=== PATIENT | male | born 1960 | race Caucasian/White ===

== ENCOUNTER → 2022-09-01 09:44 | Outpatient (CLI) | payer OTHER, SELFPAY ==
[2022-09-01 12:19] LABS: Add Manual Diff / Slide Review NO; Basophils Absolute Auto 0 /uL (0-100); Basophils Percent Auto 0.6 % (0-2); Eosinophils Absolute Auto 100 /uL (0-450); Eosinophils Percent Auto 1.9 % (2-4); Hematocrit 39.3 % (41-53); Hemoglobin 13.6 g/dL (13.5-17.5); Lymphocytes Absolute Auto 1600 /uL (1100-4500); Lymphocytes Percent Auto 36.1 % (25-40); Mean Corpuscular HGB Conc 34.6 % (30-36); Mean Corpuscular Hemoglobin 32.5 PG (26-34); Mean Corpuscular Volume 93.7 fL (80-100); Monocytes Absolute Auto 300 /uL (0-900); Monocytes Percent Auto 7.4 % (3-14); Neutrophils Absolute Auto 2400 /uL (1500-7000); Platelet Count 218 X10^3/uL (150-400); Red Blood Cell Count 4.19 X10^6/uL (4.5-5.9); White Blood Cell Count 4.5 X10^3/uL (4.5-11.0)
[2022-09-01 12:27] LABS: Hemoglobin A1C% w Est Avg Glu 5.2 % (4.0-6.0)
[2022-09-01 12:37] LABS: Appearance Urine UA CLEAR; Bilirubin Urine UA NEGATIVE (NEGATIVE); Color Urine UA YELLOW; Glucose Urine UA NEGATIVE (Negative); Ketones Urine UA NEGATIVE (NEGATIVE); Leukocyte Esterase Urine UA NEGATIVE (NEGATIVE); Nitrite Urine UA NEGATIVE (Negative); Occult Blood Urine UA TRACE-LYSED (Negative); Protein Urine UA NEGATIVE (Negative); Specific Gravity Urine UA <=1.005 (1.000-1.035); Urobilinogen Urine UA 0.2 E.U./dL (0.2)
[2022-09-01 13:06] LABS: Bacteria Urine None Seen; Culture Indicated Urine Cult Not Indicated; RBC Urine None Seen (0-5/HPF); Squamous Epithelial Cell Urine None Seen (0-5/HPF); WBC Urine None Seen (0-5/HPF)
[2022-09-01 13:56] LABS: BUN Creatinine Ratio 13.5 (6-22); Blood Urea Nitrogen 12 mg/dL (9-20); Calcium 9.1 mg/dL (8.4-10.2); Carbon Dioxide 25 mmol/L (22-32); Chloride 98 mmol/L (98-107); Estimated Glomerular Filt Rate > 60 mL/min (>60); Glucose 84 mg/dL (70-100); HEMOLYSIS < 15 (0-50); Potassium 4.3 mmol/L (3.4-5.1); Sodium 133 mmol/L (137-145)
== END ==
PROVIDERS: PCP Family Medicine; Referring Provider Orthopaedic Surgery; Visit Provider Orthopaedic Surgery
DX: Z01.818 Encounter for other preprocedural examination (principal); Z01.812 Encounter for preprocedural laboratory examination; R73.9 Hyperglycemia, unspecified; N39.0 Urinary tract infection, site not specified
CPT/HCPCS: 36415; 80048; 81001; 83036; 85025; 93005; 93010

== ENCOUNTER → 2022-10-04 10:00 | Outpatient (CLI) | payer OTHER, SELFPAY ==
[2022-10-04 10:35] LABS: COVID19 -Nasal RAPID Negative (Negative)
== END ==
PROVIDERS: PCP Family Medicine; Referring Provider Orthopaedic Surgery; Visit Provider Orthopaedic Surgery
DX: Z20.822 Contact with and (suspected) exposure to COVID-19 (principal)
CPT/HCPCS: 87635; C9803

== ENCOUNTER 2022-10-06 05:48 | Day surgery (SDC) | payer OTHER, SELFPAY ==
[2022-09-27 12:49] VITALS: BMI 26.3
[2022-10-06] VITALS (14 sets, daily range): BP systolic 117–165; BP diastolic 79–99; PULSE 66–93; RESP 12–18; TEMP 36.3–37.1; O2SAT 94–100; BMI 26.3; BMI 27.4
--- NOTE | 2022-10-06 06:43 | DI.RAD.S_ITS ---
PROCEDURE: XR HIP W PEL IF DONE RT 2V INDICATIONS: right MARY ALICE TECHNIQUE: 4 intraoperative fluoroscopic images obtained. COMPARISON: None. FINDINGS: Four intraoperative fluoroscopic images obtained from right hip arthroplasty. IMPRESSION: Intraprocedural fluoroscopy was provided for guidance and anatomical localization. Please see the procedure report for further details. Dictated by: Joel Moody M.D. on 10/07/2022 at 14:45 Approved by: Joel Moody M.D. on 10/07/2022 at 14:46
[2022-10-06] MEDS: VANCOMYCIN 1,000 MG/200 ML PIGGYBACK 200 MG IV (07:12)
[2022-10-06] MEDS: ACETAMINOPHEN 325 MG TABLET 975 MG PO (07:12)
[2022-10-06] MEDS: CELECOXIB 200 MG CAPSULE PO (07:12)
[2022-10-06] MEDS: LACTATED RINGERS 1,000 ML 100 ML IV ×2 (07:28→10:56)
--- NOTE | 2022-10-06 07:43 | P.OP_ITS ---
Operative Date/Time/Diagnoses Date of procedure: 10/06/22 Time of procedure: 08:00 Pre-op diagnosis: right hip OA Post-op diagnosis: same Procedure & Clinicians Procedure: right total hip arthroplasty anterior approach Same procedure as scheduled: Yes Indications: The patient has had progressively worsening right hip pain with radiographic c hanges consistent with arthritis. Non-operative management has failed and the patient has requested total hip replacement. The risks, benefits and alternatives to surgery were discussed with the patient prior to proceeding. Risks discussed included, but were not limited to, failure to relieve pain, leg length discrepancy, dislocation, stiffness, infection, nerve damage, deep venous thrombosis, pulmonary embolism, stroke, coma, heart attack, permanent paralysis and , as well as the potential need for eventual revision of the prosthetic. Surgeon: Melanie Elizalde Assistant Professor Of Radiology: Juventino Vela Anesthesia Type: General Operative Notes Findings: Severe right hip osteoarthritis, adequate bone, adequate stability Closure Type: primary Specimen(s): none sent Prosthetic devices, grafts, tissues, transplants, or devices: Elizalde and nephew size 7 anthology a, 52 mm R3 cup, neutral poly liner, 36 x -3 Oxinium head, one 6.5 mm screw Estimated Blood Loss (mL): 250 Blood products transfused: none Procedure in detail: The patient was brought to the operating room. Patient was carefully positioned in the supine position. Time-out was performed and antibiotics were given. Anesthesia was induced. He was positioned in the on the table in order to allow hyperextension of the hip. The right lower extremity was prepped and draped in a standard sterile fashion. An anterior right hip incision was made 1 fingerbreadth lateral to the anterior superior iliac spine and extended distally towards the greater trochanter. Dissection was carried out through skin and subcutaneous tissues. Superficial hemostasis was achieved. The fascia over the tensor fascia danitza was defined and incised with a knife. Two Allis clamps were used to grasp the fascia. Tensor fascia danitza was retracted laterally. A gelpi retractor was placed. Dissection was carried out down along the neck. The circumflex vessels were carefully identified and cauterized with the Aqua Mantis. There was good visualization of the femoral neck. A Cobra was placed superior to the neck and the gluteus fibers were carefully stripped from that superior aspect of the capsule. A 2nd retractor was placed along the inferior aspect of the neck. The rectus insertion along the capsule was partially released. A 3rd retractor that was then gently placed over the rim of the acetabulum under the rectus. Capsule was carefully incised and released from the intertrochanteric line circumferentially superior to the mid sagittal line and inferiorly to the mid sagittal line until the lesser trochanter was palpable. A tag stitch was placed both in the superior and inferior limb of the capsular insertion. Along the acetabulum capsule was also released up to the mid sagittal 12:00 position. A portion of the labrum was resected. A saw was used to perform an osteotomy at the level of the intertrochanteric line and the junction of the superior femoral neck leaving approximately 1 finger breath of residual inferior neck above the lesser trochanter. A 2nd cut was made along the femoral neck at the base of the head and a napkin ring of neck was removed. Corkscrew was placed in the femoral head and the head was removed without difficulty. Retractors were then repositioned around the acetabulum. Residual labrum was resected and additional osteophytes were removed. A reamer that was 4 mm below the templated size was placed by hand in the acetabulum and it was reamed to centralize the acetabulum. It was then reamed up to 2 under the templated size and fluoroscopy was brought in to confirm the position of the reaming and depth of reaming. I reamed 1 under the anticipated size. A trial cup was placed and noted that it was appropriately sized and fluoroscopy confirmed position and depth. The component was open and inserted without difficulty fluoroscopic imaging was used to confirm that the cup had been adequately seated and was well positioned. It was further stabilized with a single screw. Neutral poly liner was placed. The cup was tested and noted to be stable. Attention was then directed to the femur. The femur was gently hyperextended additional capsular release was performed as needed in order to allow adequate visualization of the proximal femur with elevation of the femur. Patient was placed in a hyperextended slightly adducted position with maximum external rotation. Box osteotome was used to check for any residual neck as well as sclerotic bone along the trochanter. [place] pepper was placed in the femur. Additional broaching was performed. Canal finder was used to determine the alignment of the canal and position. Size 1 broach was placed. The canal was then appropriately broached up to the templated size as long as there was adequate stability of the broach and serial advancement of the broach without excessive impingement. Specific attention was directed at avoiding varus attempting to direct the distal aspect of the broach more anteriorly and avoiding excessive anteversion. Trial reduction showed acceptable range of motion, good stability, no posterior impingement, anglican of leg length and appropriate lateral shuck. I also hyperflexed the hip and checked that there was no impingement anteriorly and there was good stability with flexion, addu ction and internal rotation. The hip was dislocated. It did look like we could probably go up 1 stem size and I went up to a size 7 stem. Marcaine and Exparel were injected. The stem was placed without difficulty. It sat about 2 mm higher than the broach but it was solid axially and rotationally in the canal. Repeat trial reduction and x- ray showed acceptable overall position, length, and no evidence of the femoral fracture. Final head was placed. Wound was meticulously irrigated with normal saline. The hip was reduced and additional Exparel and Marcaine were injected. The capsule was closed with interrupted nonabsorbable sutures. The fascia of the tensor was closed with interrupted and running Vicryl. No drain was placed. Any tensor fascia danitza muscle that appeared to be contused or injured which was a minimal amount was carefully resected. Capsule around the tensor was injected with Exparel and Marcaine. The skin was closed with barbed stitches for the subcutaneous tissue and skin. We also used surgical glue. The wound was dressed sterilely. Brief Betadine soak was also used and was meticulously irrigated with normal saline. Patient was transferred to recovery room in satisfactory condition. Complications: none Post-operative Condition: stable Disposition: Acute Care Plan for aftercare: The patient will be maintained on a standard total hip replacement protocol with weight bearing as tolerated and anterior hip precautions. The patient will receive Aspirin and sequential compression devices for DVT prophylaxis. The patient will be discharged home when safe for the home environment.
--- NOTE | 2022-10-06 07:43 | PM.PREOP ---
Pre-operative Note COVID-19 COVID-19 status: Negative Interval Note History & Physical reviewed/Exam performed by Physician: Yes Changes to H&P: No
[2022-10-06] MEDS: CEFAZOLIN 2 GM/100 ML PREMIX 100 ML IV ×2 (07:58→16:40)
[2022-10-06] MEDS: TRANEXAMIC ACID 1,000 MG VIAL 2000 MG INJ ×2 (08:20→10:11)
--- NOTE | 2022-10-06 08:25 | SUR.OPER ---
Supine on padded [place] table with bilateral legs secured in padded positioning boots and suspended in positioning spars, operative leg in traction per surgeon. Head on one pillow. Arm on non-operative side secured on padded armboard <90 degrees abduction. Arm on operative side padded and resting across chest then secured with tape over sheet. Padded perineal post in place per surgeon.
[2022-10-06] MEDS: BUPIVACAINE LIPOSOME 266 MG/20 ML VIAL INJ (08:32)
[2022-10-06] MEDS: BUPIVACAINE 0.5% W/ EPI (PF) 30 ML VIAL INJ (08:34)
--- NOTE | 2022-10-06 10:23 | DI.RAD.S_ITS ---
PROCEDURE: XR HIP W PEL IF DONE RT 2V INDICATIONS: RIGHT TOTAL HIP TECHNIQUE: 2 view(s) of the hip acquired. COMPARISON: [facility], [place], XR HIP W PEL IF DONE RT 2V, 10/06/2022, 10:22. FINDINGS: Bones: Patient is status post right hip arthroplasty, with hardware components in expected positions. The hip joint appears congruent. The visualized bony structures appear intact. Soft tissues: Overlying postoperative changes are noted. No suspicious soft tissue densities. IMPRESSION: Expected appearance status post right hip arthroplasty. Dictated by: Mayte Lozano M.D. on 10/06/2022 at 10:58 Approved by: Mayte Lozano M.D. on 10/06/2022 at 10:58
[2022-10-06] MEDS: IBUPROFEN 400 MG TABLET PO ×2 (11:47→18:29)
[2022-10-06] MEDS: ACETAMINOPHEN 325 MG TABLET 650 MG PO ×2 (11:47→18:29)
[2022-10-06] MEDS: LACTATED RINGERS 1,000 ML 125 ML IV ×2 (11:47→20:08)
[2022-10-06] MEDS: OXYCODONE IR 5 MG TABLET PO (13:11)
--- NOTE | 2022-10-06 14:05 | PT.IIE ---
Current Diagnoses Unilateral primary osteoarthritis, right hip (10/06/22) Surgery Performed Operation Date: 10/06/22 07:45 Actual Procedures p Total Hip Arthroplasty/Anterior Approach(Right) - Melanie Elizalde MD Surgical History (Last Updated 09/27/22 @ 13:09 by Jess Luna, RN) H/O vasectomy History of nasal surgery Hx of sinus surgery Medical History (Last Updated 09/27/22 @ 13:09 by Jess Luna RN) Elevated cholesterol HTN (hypertension) Osteoarthritis Physical Therapy Inpatient Evaluation/Re-Eval M1 PT/OT-IP Prior Functional Status Start: 10/06/22 15:35 Freq: NEEDED Status: Active Protocol: Document 10/06/22 14:05 AB (Rec: 10/06/22 15:50 AB [id number]) Medical Review Prior Functional Status Medical History Reviewed Yes Communication able to make needs known Mobility and Gait pt stated that he is independent with all mobilities and ambulation without AD Social History Household Members spouse Living Arrangements House Number of Floors (Floors) One Floor Number of Stairs To Enter/Railing? 1 step to enter Home Environment Standard Height Toilet,Walk in Shower,Built-In Shower Seat Home Equipment Front Wheel Walker,Grab Bars In Shower M2 PT-IP Current Condition Start: 10/06/22 15:35 Freq: NEEDED Status: Active Protocol: Document 10/06/22 14:05 AB (Rec: 10/06/22 15:50 AB [id number]) Physical Therapy Current Condition Current Condition Evaluation Date 10/06/22 Treatment Diagnosis R MARY ALICE anterior approach; difficulty in walking Onset Date 10/06/22 M3 PT-IP Subjective Start: 10/06/22 15:35 Freq: NEEDED Status: Active Protocol: Document 10/06/22 14:05 AB (Rec: 10/06/22 15:50 AB [id number]) Subjective Physical Therapy Visit Type Type Initial Evaluation Visit Start Time 14:05 Visit Stop Time 15:00 Total Visit Minutes 55 Number of SPORTS ACTIVITIES [employer] Visits 0 Physical Therapy Visit Comments Patient Comments pt is agreeable to do PT Therapy Pain Assessment Pain When Pain Assessed At Rest Pain Present Pain Present Pain Reported Location Right Hip Intensity 3 Scale Used Numeric (0 - 10) Pain Management Techniques Apply Cold,Distraction, Modification of Treatment,Re- positioning,Timing of Activity with Medications M4 PT-IP Mobility and Gait Start: 10/06/22 15:35 Freq: NEEDED Status: Active Protocol: Document 10/06/22 14:05 AB (Rec: 10/06/22 15:50 AB [id number]) PT-Bed Mobility Assessment Supine to Sit Supine to Sit Standby Assistance Sit to Supine Sit to Supine Standby Assistance PT-Transfer Assessment Sit to and From Stand Sit to and from Stand Contact Guard Assistance,1 Person Assistance,Use of Upper Extremities Equipment Transfer Assistive Device Gait Belt,Front Wheeled Walker Orthotic/Prosthetic Devices or Brace: No Comments Mobility Comments educated pt and spouse regarding anterior hip precautions. BP in supine: 155/96. nurse made aware. pt completed supine to sit SBA. able to sit on EOB SBA. BP in sittin/94. BP rechecked: 135/87. pt able to sit on EOB for a few more minutes. BP checked: 132/100. completed sit to stand CGA and took a few steps ~ 6 ft using FWW min A. c/o slight dizziness. pt sat back to EOB. BP checked: 141/97. completed sit to supine SBA. positioned in bed. call light and table placed within reach . BP checked: 139/93. informed nurse regarding BP. caregiver training set up tomorrow at 9am Gait Assessment Gait Gait Assistance Required: Minimum Assistance Distance (Feet) 6 Able to Maintain Weight Bearing Status Yes During Gait Assistive Devices Assistive Device Gait Belt,Front Wheeled Walker Orthotic/Prosthetic Devices or Brace: No Gait Deviations General Gait Pattern Decreased Stride Length, Decreased Feet Clearance Factors Limiting Gait Function Factors Limiting Gait Function Decreased Activity Tolerance, Decreased Strength,Limited Range of Motion,Pain,Poor Balance,Poor Safety Awareness PT-Balance Assessment Sitting Balance and Reactions Static Sitting Balance Ability Normal Dynamic Sitting Balance Ability Normal Standing Balance and Reactions Static Standing Balance Ability Fair Dynamic Standing Balance Ability Fair Device Used FWW M5 PT-IP Objective Assessments Start: 10/06/22 15:35 Freq: NEEDED Status: Active Protocol: Document 10/06/22 14:05 AB (Rec: 10/06/22 15:50 AB [id number]) Orientation Orientation/Cognition Level of Alertness Alert Orientation Name,Place,Situation Language Function Ability No Deficits Noted Safety Awareness Understands Safety Issues Memory Description No Deficits Noted Gross Range of Motion Lower Extremity ROM Assessment Within Functional Limits Strength Lower Extremity Strength Assessment Right Impaired Hip 3+/5 Knee 4-/5 Coordination Assessment Gross Coordination Gross Coordination WNL Sensation Assessment Sensation Gross Sensation WNL Muscle Tone Muscle Tone WNL Yes M6 PT-IP Treatment Start: 10/06/22 15:35 Freq: NEEDED Status: Active Protocol: Document 10/06/22 14:05 AB (Rec: 10/06/22 15:50 AB [id number]) Physical Therapy Treatment Education Education Provided Precautions,Weight Bearing Status,Post-Op Packet,Safety M7 PT-IP Assessment and Plan Start: 10/06/22 15:35 Freq: NEEDED Status: Active Protocol: Document 10/06/22 14:05 AB (Rec: 10/06/22 15:50 AB [email or web address]) PT Summary Assessment and Plan Potential Rehabilitation Potential Good Status of Condition at Evaluation Evolving Summary Impairments Pain,ROM,Strength,Balance, Coordination,Sensation,Tone, Cognition,Bed Mobility, Transfers,Gait,Activity Tolerance Assessment Summary pt requiring CGA to min A with mobility using FWW but unable tolerate much activity with increase BP: 132/100 and c/o dizziness. caregiver training set up tomorrow at 9 am. will continue to assess progress. pt has outpt PT scheduled. Goals Bed Mobility Goal Independent Transfer Goal Independent,Front Wheeled Walker Gait Goal Independent,Front Wheel Walker Gait Distance 200 Other Goals up/down 1 step using FWW SBA Days to Meet Goals 5 Frequency of Treatment Frequency Of Treatment Twice a Day Treatment Plan Physical Therapy Treatment Plan Bed Mobility Training,Transfer Training,Gait Training, Therapeutic Exercise,Balance Retraining,Post Op Education, Discharge Planning,Hot or Cold Pack,Neuromuscular Re-ed, Coordination Retraining,Manual Therapy Precautions Anterior Hip Precautions No Hip Extension,No Hip External Rotation Weight Bearing Status Weight Bearing Status Weight Bear as Tolerated Allowed Weight Bearing Amount (enter % RLE WBAT or #) (%) Recommendations To Nursing Amount of Assist Needed 1 Person Assist Discharge Recommendations PT Discharge Recommendations Home with Assistance, Outpatient PT Transportation Needs at Discharge Private Vehicle
--- NOTE | 2022-10-06 18:55 | PC.NURSE ---
Pt arrived from PACU at 1115am on stretcher. A&Ox4, n&t from waist down, 2+ dorsalis pedis pulses. C/o 2/10 pain to R hip. Dressing to hip c/d/i, ice in place. VSS on RA, LR started in L hand IV. Pt and spouse oriented to room and call light.
[2022-10-06] MEDS: DOCUSATE 100 MG CAPSULE PO (21:11)
[2022-10-06] MEDS: ASPIRIN EC 81 MG TABLET PO (21:11)
[2022-10-07] VITALS: BP 133/82; PULSE 71; RESP 16; TEMP 36.8; O2SAT 100
[2022-10-07] MEDS: IBUPROFEN 400 MG TABLET PO ×2 (00:25→06:17)
[2022-10-07] MEDS: ACETAMINOPHEN 325 MG TABLET 650 MG PO ×2 (00:26→06:18)
[2022-10-07] MEDS: CEFAZOLIN 2 GM/100 ML PREMIX 100 ML IV (00:27)
[2022-10-07 04:56] VITALS: BP 122/70; PULSE 68; RESP 16; TEMP 36.9; O2SAT 98
--- NOTE | 2022-10-07 07:06 | P.DS_ITS ---
History of Present Illness History of Present Illness Date Patient Seen: 10/07/22 Time Patient Seen: 07:06 Chief complaint: MARY ALICE Anterior Narrative: Operative Date/Time/Diagnoses Date of procedure: 10/06/22 Time of procedure: 08:00 Pre-op diagnosis: right hip OA Post-op diagnosis: same Procedure & Clinicians Procedure: right total hip arthroplasty anterior approach Same procedure as scheduled: Yes Indications: The patient has had progressively worsening right hip pain with radiographic changes consistent with arthritis. Non-operative management has failed and the patient has requested total hip replacement. The risks, benefits and alternatives to surgery were discussed with the patient prior to proceeding. Risks discussed included, but were not limited to, failure to relieve pain, leg length discrepancy, dislocation, stiffness, infection, nerve damage, deep venous thrombosis, pulmonary embolism, stroke, coma, heart attack, permanent paralysis and , as well as the potential need for eventual revision of the prosthetic. Surgeon: Melanie Elizalde Administrative Aide: Juventino Vela Anesthesia Type: General Operative Notes Findings: Severe right hip osteoarthritis, adequate bone, adequate stability Closure Type: primary Specimen(s): none sent Prosthetic devices, grafts, tissues, transplants, or devices: Elizalde and nephew size 7 anthology a, 52 mm R3 cup, neutral poly liner, 36 x -3 Oxinium head, one 6.5 mm screw Estimated Blood Loss (mL): 250 Blood products transfused: none Discharge Providers Provider Discharge Date: 10/07/22 Primary care physician: Bharat Rizzo MD Consults: 10/06/22 06:43 Consult to Anesthesiology Routine Comment: Consulting Provider: Anesthesiologist Reason for consultation: Regional block for post operative pain control 10/06/22 10:57 Consult to Discharge Planning Routine Comment: Consult to Physical Therapy Evaluate & Treat Comment: Physician Instructions: post op MARY ALICE protocol Discharge provider: Vanessa Salazar PA-C Summary Hospital Course Discharge Diagnosis: Right hip osteoarthritis, s/p right total hip arthroplasty, anterior approach Hospital Course: Mr Zapata's hospital course was unremarkable. On POD# 1 he was feeling well and wanted to go home. He was evaluated by PT and felt to be safe for homegoing. His pain was well-controlled with oral medication and he was eating and voiding without difficulty. Exam Vital Signs (past 8 hours): - 10/07/22 00:00 10/07/22 04:56 Temperature 98.2 F 98.5 F Pulse Rate 71 68 Respiratory Rate 16 16 Blood Pressure 133/82 122/70 Pulse Oximetry 100 98 Oxygen Flow Rate 0 0 Oxygen Delivery Method Room Air Oxygen Flow Rate 0 Narrative Exam Narrative: 5/5 strength in hip flexors, quadriceps, hamstrings, DF, PF, EHL on RLE. Sensation to light touch intact throughout RLE. Calves soft, compressible, nontender and without palpable cords or masses. Aquacel dressing CDI. COUNT INCLUDES THE [facility] Medical History (Updated 09/27/22 @ 13:09 by Jess Luna RN) Elevated cholesterol HTN (hypertension) Osteoarthritis Surgical History (Updated 09/27/22 @ 13:09 by Jess Luna RN) H/O vasectomy History of nasal surgery Hx of sinus surgery Social History household members: spouse Smoking Status: Former smoker alcohol intake: former Discharge Assessment & Plan Assessment and Plan Assessment: Right hip osteoarthritis, s/p right total hip arthroplasty, anterior approach Plan of Treatment: D/c home, pt has prescription for oxycodone pain control and was reminded to take ASA 81 mg BID x 6 weeks for VTE prophylaxis. Outpt PT. Discharge Plan Discharge Plan Patient Disposition: Home Discharge orders & Medications Discharge Orders: Discharge (Order); Ordered 10/07/22 Ordered By: Vanessa Salazar Prescriptions: New acetaminophen 325 mg Tablet 650 mg PO Q6HR Qty: 1 0RF aspirin 81 mg Tablet,Delayed Release (Dr/Ec) 81 mg PO BID Qty: 1 0RF Rx Instructions: 1 TABLET BID FOR 6 WEEKS FOLLOWING SURGERY Continued meloxicam 15 mg Tablet 15 mg PO DAILY acetaminophen 500 mg Tablet 1,000 mg PO QD-BID PRN (Reason: Pain) diphenhydramine-acetaminophen [Acetaminophen PM] 25-500 mg Tablet 2 tab PO BEDTIME PRN (Reason: Pain, sleep) Follow up/Referrals: Bharat Rizzo MD [Primary Care Provider] - Melanie Elizalde MD [Physician] - As previously scheduled (Follow up w/ Dr Elizalde on 10/20/2022 @ 2:00 pm at [facility] office in [place].) Diet/Activity/Treatments Diet: Diet as Tolerated Activity: Weight bearing as tolerated to RLE. Anterior hip precautions. Cold/Heat Therapy: Ice to hip as needed for pain. Skin/Wound/Dressing Care Report to your healthcare provider any signs of infection, such as:: chills, fever, night sweats, unusual drainage and unusual redness Dressing: May shower; leave Aquacel dressing in place until follow up visit. No bathing or otherwise soaking incision. Call office if Aquacel dressing becomes saturated inside. Visit Report/Discharge Packet Instructions: DI for Hip Replacement Stand Alone Forms: Surgery Discharge Discharge Data Primary Care Provider: Bharat Rizzo Attending Provider: Melanie Elizalde VTE Deep Vein Thrombosis/Pulmonary Embolism Present on Admission: No
[2022-10-07 07:46] LABS: Hematocrit 36.2 % (41-53); Hemoglobin 12.6 g/dL (13.5-17.5)
[2022-10-07 08:00] VITALS: PULSE 64; RESP 17; TEMP 36.6; O2SAT 96
--- NOTE | 2022-10-07 08:16 | CM.DANOTE ---
Initial DCP Assessment Note Pt is a 62 yo male, resident of [place], now POD#1 from : p Total Hip Arthroplasty/Anterior Approach(Right) - Melanie Elizalde MD PCP: Bharat Rizzo Payer: Radha Reviewed chart, Therapy has cleared pt for return home w/family to assist and pt has planned for home, DC order from Ortho has already been initiated this morning. No barriers identified at this time to patient's safe discharge home w/family to assist; close outpatient f/u recommended. AGA B[place]illo Discharge Planning/Care Management CM Discharge Assessment Start: 10/07/22 08:12 Freq: Status: Active Protocol: Document 10/07/22 08:12 FORREST (Rec: 10/07/22 08:15 [id number]) Discharge Planning Assessment Assigned Strategic Development Manager AGA Borjas DPOA/Assigned Designee Name Mya Zapata, spouse Contact Information [phone] Advance Directives? No History Provided By Patient,Medical Record Prior Living Arrangements House Household Members spouse Type of transporation used prior to Drives own vehicle admit Independent with ADL's Yes Is patient alert and oriented? Yes Barriers to Discharge No Comment Home w/spouse to assist and close outpatient f/u Discharge Plan Home Transportation Arrangement Spouse Referrals Initiated None needed
--- NOTE | 2022-10-07 09:44 | PT.IPTN ---
Current Diagnoses Unilateral primary osteoarthritis, right hip (10/06/22) Surgery Performed Operation Date: 10/06/22 07:45 Actual Procedures p Total Hip Arthroplasty/Anterior Approach(Right) - Melanie Elizalde MD Physical Therapy Treatment Note M2 PT-IP Current Condition Start: 10/06/22 15:35 Freq: NEEDED Status: Discharge Protocol: Document 10/07/22 09:12 SP (Rec: 10/07/22 14:49 SP [id number]) Physical Therapy Current Condition Current Condition Evaluation Date 10/06/22 Treatment Diagnosis R MARY ALICE anterior approach; difficulty in walking Onset Date 10/06/22 M3 PT-IP Subjective Start: 10/06/22 15:35 Freq: NEEDED Status: Discharge Protocol: Document 10/07/22 09:12 SP (Rec: 10/07/22 14:49 SP [id number]) Subjective Physical Therapy Visit Type Type Treatment Note Visit Start Time 09:12 Visit Stop Time 09:44 Total Visit Minutes 32 Notes Vitals taken: supine: BP 144/80 HR 80 SaO2 100% on RA post mobility: 155/83 HR 80 complete CGT including donning GB and support as needed, sBA throughout tx for safety. 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 Patient Goals Return home with to assist him, set up for outpt therapy Oct 14. Therapy Pain Assessment Pain When Pain Assessed At Rest Pain Present Pain Present Pain Reported Location Right Hip Intensity 2 Scale Used Numeric (0 - 10) Pain Management Techniques Distraction,Modification of Treatment,Re-positioning, Timing of Activity with Medications M4 PT-IP Mobility and Gait Start: 10/06/22 15:35 Freq: NEEDED Status: Discharge Protocol: Document 10/07/22 09:12 SP (Rec: 10/07/22 14:49 SP [id number]) PT-Bed Mobility Assessment Supine to Sit Supine to Sit Standby Assistance Scooting Scooting to Edge of Bed Standby Assistance PT-Transfer Assessment Sit to and From Stand Sit to and from Stand Standby Assistance,Contact Guard Assistance,Use of Upper Extremities Equipment Transfer Assistive Device Gait Belt,Front Wheeled Walker Orthotic/Prosthetic Devices or Brace: No Transfers Transfer Destination Chair Transfer Technique pt ambulated using FWW Transfer Ability Level of Assist Standby Assistance,Use of Upper Extremities Comments Mobility Comments Pt completed post op HEP review: AP, HS, quad and glut sets 5 reps each. Gait Assessment Gait Gait Assistance Required: Minimum Assistance Distance (Feet) 100 Able to Maintain Weight Bearing Status Yes During Gait Assistive Devices Assistive Device Gait Belt,Front Wheeled Walker Orthotic/Prosthetic Devices or Brace: No Gait Deviations General Gait Pattern Antalgic,Decreased Stride Length,Decreased Feet Clearance,Step-to Gait Factors Limiting Gait Function Factors Limiting Gait Function Decreased Activity Tolerance, Decreased Strength,Pain Comments Gait Comments Good demonstration step to gait patterning leading RLE, cued small steps during pivot to maintain no ER precaution with RLE. Stair Climbing Assessment Evaluation Level of Assist On Stairs Contact Guard Assistance Devices Stair Climbing Assistive Devices Front Wheel Walker Technique/Endurance Stair Climbing Direction Ascend and Descend Stair Climbing Technique Step to Step Number of Steps Climbed 1 Stair Climbing Set # Repetitions (reps) 1 Comments Stair Climbing Comments Completed 1 PF step 8 w/ FWW assimulation has to do at home . Cued lead LLE ascend/RLE descend with good stability, noted heavy BUE WB on FWW asc/ desc, CGA via . Stable good carryover post ed. PT-Balance Assessment Sitting Balance and Reactions Static Sitting Balance Ability Normal Dynamic Sitting Balance Ability Normal Standing Balance and Reactions Static Standing Balance Ability Good Dynamic Standing Balance Ability Good Device Used FWW M5 PT-IP Objective Assessments Start: 10/06/22 15:35 Freq: NEEDED Status: Discharge Protocol: Document 10/06/22 14:05 AB (Rec: 10/06/22 15:50 AB [id number]) Orientation Orientation/Cognition Level of Alertness Alert Orientation Name,Place,Situation Language Function Ability No Deficits Noted Safety Awareness Understands Safety Issues Memory Description No Deficits Noted Gross Range of Motion Lower Extremity ROM Assessment Within Functional Limits Strength Lower Extremity Strength Assessment Right Impaired Hip 3+/5 Knee 4-/5 Coordination Assessment Gross Coordination Gross Coordination WNL Sensation Assessment Sensation Gross Sensation WNL Muscle Tone Muscle Tone WNL Yes M6 PT-IP Treatment Start: 10/06/22 15:35 Freq: NEEDED Status: Discharge Protocol: Document 10/07/22 09:12 SP (Rec: 10/07/22 14:49 SP [id number]) Physical Therapy Treatment Education Education Provided Precautions,Weight Bearing Status,Post-Op Packet,Safety Other Treatments Other Treatment Performed Good recall 2/2 precautions, cued for small steps during pivot to maintain no ER RLE. M7 PT-IP Assessment and Plan Start: 10/06/22 15:35 Freq: NEEDED Status: Discharge Protocol: Document 10/07/22 09:12 SP (Rec: 10/07/22 14:49 SP [id number]) PT Summary Assessment and Plan Potential Rehabilitation Potential Excellent Status of Condition at Evaluation Stable Summary Impairments Pain,ROM,Strength,Balance, Coordination,Sensation,Tone, Cognition,Bed Mobility, Transfers,Gait,Activity Tolerance Progress Towards Goals Progressing Toward Goals,Slow Progress due to Pain,Slow Progress due to Activity Tolerance Assessment Summary Pt SBA w/FWW throughout tx, improved stable BPs 140-150s/ 80s throughout today's tx, back to his baseline. Good recall precautions. Pt is ok to return home with when medically cleared, set up for outpt PT 10/14. Discussed walking hourly for safety strength/circulation and post op HEP 2-3 x/daily until outpt PT, verbalized understanding. Goals Bed Mobility Goal Independent Transfer Goal Independent,Front Wheeled Walker Gait Goal Independent,Front Wheel Walker Gait Distance 200 Other Goals up/down 1 step using FWW SBA Days to Meet Goals 5 Frequency of Treatment Frequency Of Treatment Twice a Day Treatment Plan Physical Therapy Treatment Plan Bed Mobility Training,Transfer Training,Gait Training, Therapeutic Exercise,Balance Retraining,Post Op Education, Discharge Planning,Hot or Cold Pack,Neuromuscular Re-ed, Coordination Retraining,Manual Therapy Other Recommendations and Next Treatment Check BP baseline and with Focus activity, post op ex/ROM, gait further distance w/ FWW, STS. Precautions Anterior Hip Precautions No Hip Extension,No Hip External Rotation Other Precautions Good recall precautions Weight Bearing Status Weight Bearing Status Weight Bear as Tolerated Allowed Weight Bearing Amount (enter % RLE WBAT or #) (%) Recommendations To Nursing Amount of Assist Needed Standby Assistance Discharge Recommendations PT Discharge Recommendations Home with Assistance, Outpatient PT Transportation Needs at Discharge Private Vehicle
[2022-10-07] MEDS: OXYCODONE IR 5 MG TABLET PO (10:16)
[2022-10-07] MEDS: DOCUSATE 100 MG CAPSULE PO (10:16)
[2022-10-07] MEDS: ASPIRIN EC 81 MG TABLET PO (10:16)
--- NOTE | 2022-10-07 11:50 | PC.NURSE ---
1045 - Patient sitting up in chair, dressed, and asking about discharge. Discussed pain and pain control for ride home. Pt reports [address] RX given. Education and discharge instructions reviewed. Supportive at bedside. Deny further questions. IV d/c'd. Dicharged via wheelchair with Margoth ORTIZ.
== END 2022-10-07 10:45 | disposition home or self-care (01) ==
LOC: OR 05:51 → AC 05:53
PROVIDERS: PCP Family Medicine; Referring Provider Orthopaedic Surgery; Visit Provider Orthopaedic Surgery
PROC: (CPT 27130; principal; 2022-10-06 07:45)
DX: M16.11 Unilateral primary osteoarthritis, right hip (principal); F17.210 Nicotine dependence, cigarettes, uncomplicated
CPT/HCPCS: 27130; 73502; 76000; 85014; 85018; 97110; 97162; 97530; C1776; C9290; J0690; J1100; J2250; J2405; J2704; J3010